=== PATIENT | male | born 1985 | race Caucasian/White ===

== ENCOUNTER 2021-05-01 14:26 | Emergency (ER) | payer BC ==
[2021-05-01] MEDS ORDERED: Sodium Chloride 0.9% 10 ML Syringe FLUSH PRN (17:05)
[2021-05-01 17:29] LABS: CORONAVIRUS COVID-19 NAA POSITIVE (NEGATIVE)
[2021-05-01] MEDS ORDERED: diphenhydrAMINE 50 MG/ML SDV IVPUSH PRN (17:41)
[2021-05-01] MEDS ORDERED: methylPREDNISolone Sodium Succinate 125 MG/2 ML SDV IVPUSH PRN (17:41)
[2021-05-01] MEDS ORDERED: Famotidine 20 MG/2 ML SDV IVPUSH PRN (17:41)
[2021-05-01] MEDS ORDERED: EPINEPHrine 1 MG/ML SDV IM PRN (17:41)
[2021-05-01] MEDS ORDERED: Sodium Chloride 0.9% 10 ML Syringe FLUSH SCH (17:45)
--- NOTE | 2021-05-01 17:46 | EDM.PDOC ---
ED HPI GENERAL MEDICAL PROBLEM - General Chief Complaint: Respiratory Problem Stated Complaint: COVID SYMPTOMS Time Seen by Provider: 05/01/21 15:57 Source of Information: Reports: Patient History Limitations: Reports: No Limitations - History of Present Illness INITIAL COMMENTS - FREE TEXT/NARRATIVE: 36-year-old male presents the emergency department with complaints of dry thro at, muscle aches, diarrhea, fatigue and a sense of change in taste. Patient states that this started 9 days ago. He states that over the past couple of days however the fatigue is getting worse as well as shortness of breath while at rest. He is also noted to have a paroxysmal cough that has started. States that his fever at home prior to arrival in the emergency department was 102. States he does have a history of hypothyroidism for which he takes medication. He denies any other pertinent medical history. He is not a smoker. He did not have his Covid vaccine. Lower Posterior Back Pain Score (Numeric/FACES): 8 - Related Data Allergies Allergy/AdvReac Type Severity Reaction Status Date / Time amoxicillin Allergy Intermediate uricaria Verified 05/01/21 15:58 Home Meds: Home Meds Levothyroxine Sodium [Levo-T] 150 mcg PO DAILY 05/01/21 [History] Past Medical History HEENT History: Reports: Impaired Vision Other HEENT History: glasses. dental surgery Cardiovascular History: Reports: None Respiratory History: Reports: None Gastrointestinal History: Reports: None Genitourinary History: Reports: None Musculoskeletal History: Reports: None Neurological History: Reports: None Psychiatric History: Reports: None Endocrine/Metabolic History: Reports: None Do You Give Correction Boluses or Sliding Scale: No Hematologic History: Reports: None Immunologic History: Reports: None Oncologic (Cancer) History: Reports: None Dermatologic History: Reports: Eczema - Infectious Disease History Infectious Disease History: Reports: Chicken Pox - Past Surgical History Head Surgeries/Procedures: Reports: None Oncologic Surgical History: Reports: None Social & Family History - Tobacco Use Tobacco Use Status *Q: Never Tobacco User Second Hand Smoke Exposure: No - Caffeine Use Caffeine Use: Reports: None - Recreational Drug Use Recreational Drug Use: No ED ROS GENERAL - Review of Systems Review Of Systems: Comprehensive ROS is negative, except as noted in HPI. ED EXAM, GENERAL - Physical Exam Exam: See Below Exam Limited By: No Limitations General Appearance: Alert, WD/WN, Moderate Distress Ears: Normal External Exam, Hearing Grossly Normal Nose: Normal Inspection Throat/Mouth: Normal Inspection, Normal Lips, Normal Voice, No Airway Compromise Head: Atraumatic Neck: Normal Inspection, Supple Respiratory/Chest: Respiratory Distress, Decreased Breath Sounds, Crackles (Right middle and lower lobe as well as left lower lobe) Cardiovascular: Normal Peripheral Pulses, Regular Rate, Rhythm, No Edema, No Murmur Peripheral Pulses: 2+: Radial (L), Radial (R) GI/Abdominal: Normal Bowel Sounds, Soft, Non-Tender, No Distention (Male) Exam: Deferred Rectal (Males) Exam: Deferred Back Exam: Normal Inspection Extremities: Normal Inspection Neurological: Alert, Oriented, Normal Cognition Psychiatric: Normal Affect, Normal Mood Skin Exam: Dry, Intact, Normal Color, No Rash. No: Warm (Skin is hot to touch) Lymphatic: No Adenopathy #1 Interpretation EKG Date: 05/01/21 Time: 17:27 Rhythm: NSR Rate (Beats/Min): 106 [place]: Normal P-Wave: Present QRS: Normal ST-T: Normal QT: Normal Comparison: NA - No Prior EKG EKG Interpretation Comments: Per Dr. Barbosa interpretation: Sinus tachycardia at 106 bpm; early R wave transitionconsider septal hypertrophy; T wave inversion in leads III and aVFconsider inferior wall ischemia Course - Vital Signs Text/Narrative:: 36-year-old male presents the ER with complaints of Covid-like symptoms that have progressively worsened over the past week. Upon exam, the patient's skin is hot to touch and he is tachycardic in the 1 teens. He does have crackles noted to right middle and lower lobe and left lower lobe. He is dyspneic at rest and can only speak in a few word sentences. He also has a dry paroxysmal cough noted. Will obtain a Covid swab and lab studies to include a CBC, CMP, magnesium, C-reactive protein and a D-dimer as well as a portable chest x-ray. O2 saturations at the time of my exam were 94% on room air. Last Recorded V/S: Last Vital Signs Temp 100.5 F 05/01/21 15:50 Pulse 108 H 05/01/21 15:50 Resp 24 H 05/01/21 15:50 BP 142/99 H 05/01/21 15:50 Pulse Ox - Orders/Labs/Meds Orders: Active Orders 24 hr Category Date Time Status Vital Signs [RC] Q15M Care 05/01/21 17:42 Active Chest 1V Frontal [CR] Stat Exams 05/01/21 17:05 Taken EPINEPHrine [Adrenalin] Med 05/01/21 17:41 Active 0.3 mg IM ASDIRECTED PRN Famotidine [Pepcid] Med 05/01/21 17:41 Active 20 mg IVPUSH ASDIRECTED PRN Sodium Chloride 0.9% [Saline Flush] Med 05/01/21 17:05 Active 10 ml FLUSH ASDIRECTED PRN Sodium Chloride 0.9% [Saline Flush] Med 05/01/21 17:45 Active 30 ml FLUSH ASDIRECTED diphenhydrAMINE [Benadryl] Med 05/01/21 17:41 Active 50 mg IVPUSH ASDIRECTED PRN methylPREDNISolone Sod Succ [Solu-MEDROL] Med 05/01/21 17:41 Active 125 mg IVPUSH ASDIRECTED PRN Saline Lock Insert [OM.PC] Stat Oth 05/01/21 17:05 Ordered Medication Orders Diphenhydramine HCl (Diphenhydramine 50 Mg/Ml Sdv) 50 mg IVPUSH ASDIRECTED PRN PRN Reason: hypersensitivity reaction Epinephrine HCl (Epinephrine 1 Mg/Ml Sdv) 0.3 mg IM ASDIRECTED PRN PRN Reason: hypersensitivity reaction Famotidine (Famotidine 20 Mg/2 Ml Sdv) 20 mg IVPUSH ASDIRECTED PRN PRN Reason: hypersensitivity reaction Methylprednisolone Sodium Succinate (Methylprednisolone Sodium Succinate 125 M g/2 Ml Sdv) 125 mg IVPUSH ASDIRECTED PRN PRN Reason: hypersensitivity reaction Sodium Chloride (Sodium Chloride 0.9% 10 Ml Syringe) 10 ml FLUSH ASDIRECTED PRN PRN Reason: Keep Vein Open Last Admin: 05/01/21 17:12 Dose: 10 ml Documented by: DOC Sodium Chloride (Sodium Chloride 0.9% 10 Ml Syringe) 30 ml FLUSH ASDIRECTED SEPIDEH Labs: Laboratory Tests 05/01/21 05/01/21 05/01/21 Range/Units 16:05 16:50 16:50 WBC 4.29 (4.23-9.07) K/mm3 RBC 5.00 (4.63-6.08) M/mm3 Hgb 15.0 D (13.7-17.5) gm/dl Hct 43.0 (40.1-51.0) % MCV 86.0 (79.0-92.2) fl MCH 30.0 (25.7-32.2) pg MCHC 34.9 (32.2-35.5) g/dl RDW Std Deviation 39.5 (35.1-43.9) fL Plt Count 140 L (163-337) K/mm3 MPV 10.4 (9.4-12.3) fl Neut % (Auto) 71.2 H (34.0-67.9) % Lymph % (Auto) 20.5 L (21.8-53.1) % [place] % (Auto) 7.9 (5.3-12.2) % Eos % (Auto) 0 L (0.8-7.0) Baso % (Auto) 0.2 (0.1-1.2) % Neut # (Auto) 3.05 (1.78-5.38) K/mm3 Lymph # (Auto) 0.88 L (1.32-3.57) K/mm3 [place] # (Auto) 0.34 (0.30-0.82) K/mm3 Eos # (Auto) 0.00 L (0.04-0.54) K/mm3 Baso # (Auto) 0.01 (0.01-0.08) K/mm3 D-Dimer, Quantitative 1.25 H (0.19-0.50) mg/L Sodium (136-145) mEq/L Potassium (3.5-5.1) mEq/L Chloride (98-107) mEq/L Carbon Dioxide (21-32) mEq/L Anion Gap (5-15) BUN (7-18) mg/dL Creatinine (0.7-1.3) mg/dL Est Cr Clr Drug Dosing mL/min Estimated GFR (MDRD) (>60) mL/min BUN/Creatinine Ratio (14-18) Glucose (70-99) mg/dL Calcium (8.5-10.1) mg/dL Magnesium (1.8-2.4) mg/dL Total Bilirubin (0.2-1.0) mg/dL AST (15-37) U/L ALT (16-63) U/L Alkaline Phosphatase (46-116) U/L C-Reactive Protein (<1.0) mg/dL Total Protein (6.4-8.2) g/dl Albumin (3.4-5.0) g/dl Globulin gm/dL Albumin/Globulin Ratio (1-2) Influenza Type A RNA Negative (NEGATIVE) Influenza Type B RNA Negative (NEGATIVE) SARS-CoV-2 RNA (TAMIKO) Positive H (NEGATIVE) 05/01/21 Range/Units 16:50 WBC (4.23-9.07) K/mm3 RBC (4.63-6.08) M/mm3 Hgb (13.7-17.5) gm/dl Hct (40.1-51.0) % MCV (79.0-92.2) fl MCH (25.7-32.2) pg MCHC (32.2-35.5) g/dl RDW Std Deviation (35.1-43.9) fL Plt Count (163-337) K/mm3 MPV (9.4-12.3) fl Neut % (Auto) (34.0-67.9) % Lymph % (Auto) (21.8-53.1) % [place] % (Auto) (5.3-12.2) % Eos % (Auto) (0.8-7.0) Baso % (Auto) (0.1-1.2) % Neut # (Auto) (1.78-5.38) K/mm3 Lymph # (Auto) (1.32-3.57) K/mm3 [place] # (Auto) (0.30-0.82) K/mm3 Eos # (Auto) (0.04-0.54) K/mm3 Baso # (Auto) (0.01-0.08) K/mm3 D-Dimer, Quantitative (0.19-0.50) mg/L Sodium 136 (136-145) mEq/L Potassium 3.9 (3.5-5.1) mEq/L Chloride 103 (98-107) mEq/L Carbon Dioxide 21 (21-32) mEq/L Anion Gap 15.9 H (5-15) BUN 11 (7-18) mg/dL Creatinine 1.2 (0.7-1.3) mg/dL Est Cr Clr Drug Dosing 88.72 mL/min Estimated GFR (MDRD) > 60 (>60) mL/min BUN/Creatinine Ratio 9.2 L (14-18) Glucose 94 (70-99) mg/dL Calcium 7.5 L (8.5-10.1) mg/dL Magnesium 2.0 (1.8-2.4) mg/dL Total Bilirubin 1.0 (0.2-1.0) mg/dL AST 30 (15-37) U/L ALT 30 (16-63) U/L Alkaline Phosphatase 68 (46-116) U/L C-Reactive Protein 2.4 H* (<1.0) mg/dL Total Protein 7.0 (6.4-8.2) g/dl Albumin 3.3 L (3.4-5.0) g/dl Globulin 3.7 gm/dL Albumin/Globulin Ratio 0.9 L (1-2) Influenza Type A RNA (NEGATIVE) Influenza Type B RNA (NEGATIVE) SARS-CoV-2 RNA (TAMIKO) (NEGATIVE) Meds: Medications Generic Name Dose Route Start Last Admin Trade Name Freq PRN Reason Stop Dose Admin Diphenhydramine HCl 50 mg 05/01/21 17:41 Diphenhydramine 50 Mg/Ml Sdv IVPUSH ASDIRECTED PRN hypersensitivity reaction Epinephrine HCl 0.3 mg 05/01/21 17:41 Epinephrine 1 Mg/Ml Sdv IM ASDIRECTED PRN hypersensitivity reaction Famotidine 20 mg 05/01/21 17:41 Famotidine 20 Mg/2 Ml Sdv IVPUSH ASDIRECTED PRN hypersensitivity reaction Methylprednisolone Sodium Succinate 125 mg 05/01/21 17:41 Methylprednisolone Sodium Succinate 125 Mg/2 Ml Sdv IVPUSH ASDIRECTED PRN hypersensitivity reaction Sodium Chloride 10 ml 05/01/21 17:05 05/01/21 17:12 Sodium Chloride 0.9% 10 Ml Syringe FLUSH 10 ml ASDIRECTED PRN Administration Keep Vein Open Sodium Chloride 30 ml 05/01/21 17:45 Sodium Chloride 0.9% 10 Ml Syringe FLUSH ASDIRECTED SEPIDEH Discontinued Medications Generic Name Dose Route Start Last Admin Trade Name Freq PRN Reason Stop Dose Admin Acetaminophen 650 mg 05/01/21 17:55 05/01/21 18:53 Acetaminophen 325 Mg Tab PO 05/01/21 17:56 650 mg NOW ONE Administration CASIRIVIMAB/IMDEVIMAB 10 ml/ 110 mls @ 220 mls/hr 05/01/21 17:41 05/01/21 18:02 Sodium Chloride IV 05/01/21 18:10 220 mls/hr ONETIME ONE Administration - Re-Assessments/Exams Free Text/Narrative Re-Assessment/Exam: 05/01/21 17:35 Hematology reveals a WBC of 4.29, hemoglobin 15.0, hematocrit 43.0, platelet count 140 Coagulation reveals a D-dimer of 1.25 Chemistry reveals a sodium of 136, potassium 3.9, anion gap 15.9, BUN 11, creatinine 1.2, glucose 94, calcium 7.5, magnesium 2.0, C-reactive protein 2.4 Influenza a and B are negative, patient's Covid swab comes back positive Portable view of the chest reveals areas of infiltrates consistent with Covid pneumonia I spoke with the patient to provide information about Regeneron treatment for himself. I offered her the patient and caregiver [employer] Regeneron fax sheet to read and review. I stated the drug has been approved by an emergency use authorization process and has not been fully FDA approved or reviewed. The patient meets the EUA requirements. I discussed there are other potential treatment options that are currently not FDA approved to treat COVID-19. Offered opportunity to ask questions and all questions were answered. The patient voiced understanding and agreed to proceed with the treatment for himself. 05/01/21 19:30 Patient did receive Regeneron treatment and has been monitored for 1 hour after treatment. He tolerated it without any event. He will be discharged home. Departure - Departure Time of Disposition: 19:30 Disposition: Home, Self-Care 01 Condition: Good Clinical Impression: COVID-19 - Discharge Information Referrals: Lena Wilson PA-C [Primary Care Provider] - Forms: ED Department Discharge Additional Instructions: You were seen in the emergency department this afternoon and tested positive for Covid. You were a candidate for monoclonal antibodies and you did receive these while in the emergency department. As discussed these have been shown to decrease the severity and length of time that you have Covid. You do need to continue isolating for a total of 10 days time from the initial onset of your symptoms. If you are still coughing it is recommended that you wear a mask while out in public to prevent spread of Covid. Recommend that you continue taking Tylenol 650 mg or ibuprofen 600 mg as needed for fever or body aches. Be sure to get plenty rest and drink plenty of fluids. Sepsis Event Note (ED) - Evaluation Sepsis Screening Result: No Definite Risk - Focused Exam Vital Signs: Vital Signs Temp Pulse Resp BP 05/01/21 15:50 100.5 F 108 H 24 H 142/99 H - My Orders Last 24 Hours: My Active Orders 05/01/21 17:05 Chest 1V Frontal [CR] Stat Sodium Chloride 0.9% [Saline Flush] 10 ml FLUSH ASDIRECTED PRN Saline Lock Insert [OM.PC] Stat 05/01/21 17:41 EPINEPHrine [Adrenalin] 0.3 mg IM ASDIRECTED PRN Famotidine [Pepcid] 20 mg IVPUSH ASDIRECTED PRN diphenhydrAMINE [Benadryl] 50 mg IVPUSH ASDIRECTED PRN methylPREDNISolone Sod Succ [Solu-MEDROL] 125 mg IVPUSH ASDIRECTED PRN 05/01/21 17:42 Vital Signs [RC] Q15M 05/01/21 17:45 Sodium Chloride 0.9% [Saline Flush] 30 ml FLUSH ASDIRECTED - Assessment/Plan Last 24 Hours: My Active Orders 05/01/21 17:05 Chest 1V Frontal [CR] Stat Sodium Chloride 0.9% [Saline Flush] 10 ml FLUSH ASDIRECTED PRN Saline Lock Insert [OM.PC] Stat 05/01/21 17:41 EPINEPHrine [Adrenalin] 0.3 mg IM ASDIRECTED PRN Famotidine [Pepcid] 20 mg IVPUSH ASDIRECTED PRN diphenhydrAMINE [Benadryl] 50 mg IVPUSH ASDIRECTED PRN methylPREDNISolone Sod Succ [Solu-MEDROL] 125 mg IVPUSH ASDIRECTED PRN 05/01/21 17:42 Vital Signs [RC] Q15M 05/01/21 17:45 Sodium Chloride 0.9% [Saline Flush] 30 ml FLUSH ASDIRECTED
[2021-05-01] MEDS ORDERED: Acetaminophen 325 MG Tab PO ONE (17:55)
--- NOTE | 2021-05-02 07:41 | CR ---
Chest: Portable view of the chest was obtained. Comparison: No prior chest imaging is available. Slight increased density is seen within both lung bases. Additional density is noted within the right upper lung which has more of a masslike appearance. Heart size and mediastinum are normal. Bony structures are unremarkable. Impression: 1. Slight increased density within both lung bases suspicious for mild possible COVID pneumonia. 2. Nodular type density within the upper right chest which could represent additional area of pneumonia but should be followed to make sure this does not represent an unusual mass. Diagnostic code #3
== END 2021-05-01 19:40 | disposition home or self-care (01) ==
LOC: JD.ED 14:26
DX: U07.1 COVID-19 (principal); Z88.0 Allergy status to penicillin; Z79.899 Other long term (current) drug therapy
CPT/HCPCS: 0240U; 36415; 71045; 80053; 83735; 85025; 85379; 86140; 93005; 99284; A9270; M0243; Q0243

== ENCOUNTER 2023-05-22 05:27 | Emergency (ER) | payer BC ==
[2023-05-22] MEDS ORDERED: Sodium Chloride 0.9% 10 ML Syringe FLUSH PRN (05:43)
[2023-05-22] MEDS ORDERED: Aspirin 81 MG Tab.Chew PO ONE (05:43)
[2023-05-22 05:49] LABS: BASOPHILS ABSOLUTE AUTO 0.1 K/mm3 (0.0-0.2); BASOPHILS PERCENT AUTO 0.9 % (0.0-1.0); EOSINOPHILS ABSOLUTE AUTO 0.1 K/mm3 (0.0-0.4); EOSINOPHILS PERCENT AUTO 2.5 % (0.0-6.0); HEMATOCRIT 45.8 % (42.0-52.0); HEMOGLOBIN 16.4 gm/dl (14.0-18.0); IMMATURE GRAN ABSOLUTE AUTO 0.02 K/mm3 (0.00-0.05); IMMATURE GRAN PERCENT AUTO 0.4 % (0.0-0.4); LYMPHOCYTES ABSOLUTE AUTO 1.9 K/mm3 (1.0-4.8); LYMPHOCYTES PERCENT AUTO 35.1 % (24.0-44.0); MEAN CORPUSCULAR HEMOGLOBIN 30.7 pg (28.0-32.0); MEAN CORPUSCULAR HGB CONC 35.8 g/dl (32.0-36.0); MEAN CORPUSCULAR VOLUME 85.6 fl (83.0-99.0); MEAN PLATELET VOLUME 10.4 fl (9.4-12.4); MONOCYTES ABSOLUTE AUTO 0.6 K/mm3 (0.0-0.8); MONOCYTES PERCENT AUTO 10.5 % (0.0-8.0); NEUTROPHILS ABSOLUTE AUTO 2.8 K/mm3 (1.8-7.7); NEUTROPHILS PERCENT AUTO 50.6 % (41.0-71.0); PLATELET COUNT,PLT 177 K/mm3 (150-400); RED BLOOD CELL COUNT 5.35 M/mm3 (4.52-5.90)
[2023-05-22 06:13] LABS: A/G RATIO 1.1 (1-2); ALANINE AMINOTRANSFERASE,ALT 27 U/L (16-63); ALBUMIN 3.7 g/dl (3.4-5.0); ALKALINE PHOSPHATASE 92 U/L (46-116); ASPARTATE AMNIOTRANSFERASE,AST 9 U/L (15-37); BILIRUBIN TOTAL 0.8 mg/dL (0.2-1.0); BLOOD UREA NITROGEN,BUN 12 mg/dL (7-18); BUN/CREATININE RATIO 9.2 (14-18); CALCIUM 8.5 mg/dL (8.5-10.1); CARBON DIOXIDE,CO2 24 mEq/L (21-32); CHLORIDE,CL 106 mEq/L (98-107); CREATININE 1.3 mg/dL (0.7-1.3); EST CRCL DRUG DOSING (CG) 82.86 mL/min; ESTIMATED GFR 73 mL/min (>60); GLUCOSE RANDOM 112 mg/dL (70-99); PROTEIN TOTAL,TP 7.2 g/dl (6.4-8.2); SODIUM,NA 140 mEq/L (136-145)
[2023-05-22 06:14] LABS: TROPONIN I HIGH SENSITIVITY < 4 pg/mL (<=76)
== END 2023-05-22 06:30 | disposition home or self-care (01) ==
LOC: JD.ED 05:27
DX: M54.50 Low back pain, unspecified (principal); R07.89 Other chest pain; Z88.0 Allergy status to penicillin
CPT/HCPCS: 36415; 71045; 80053; 84484; 85025; 93005; 99285; A9270; J3490; 93010; 99284